=== PATIENT | female | born 1990 | race Caucasian/White ===

== ENCOUNTER 2021-08-02 16:07 | Emergency (ER) | payer OTHER, SELFPAY ==
[2021-08-02 16:57] VITALS: BP 147/86; PULSE 99; RESP 18; TEMP 36.7; O2SAT 99; BMI 48.1
--- NOTE | 2021-08-02 17:15 | ED.EAR ---
HPI - Ear Problem General Chief complaint: Ear Problems Stated complaint: Earache Time Seen by Provider: 08/02/21 17:15 Source: patient Mode of arrival: ambulatory Limitations: no limitations History of Present Illness MD Complaint: ear pain, ear discharge and decreased hearing Location: right ear Duration: constant Severity: moderate Relieving factors: nothing Exacerbating factors: chewing, position of head and palpation Discharge from ear: yes - purulent Associated symptoms ear: decreased hearing and external ear tenderness Treatment prior to arrival: none Related Data Previous Rx's Medication Instructions Recorded levofloxacin 750 mg tablet 750 mg PO DAILY #10 tab 08/02/21 ofloxacin 0.3 % ear drops 10 drp OTIC (EARS) DAILY 7 Days 08/02/21 #10 ml Allergies Allergy/AdvReac Type Severity Reaction Status Date / Time No Known Allergies Allergy Verified 08/02/21 16:56 [No Known Allergies*] Review of Systems Review of Systems: Constitutional : No Fever, No Chills ENT/Mouth : No sore throat, No Rhinorrhea, pos ear pain Eyes: No Eye Pain, No Swelling, No Redness Cardiovascular : No Chest Pain, No SOB Respiratory : No Cough, No Sputum, No Wheezing Gastrointestinal : No Nausea, No Vomiting, No Diarrhea Skin : No Skin Lesions, No rash Neuro : No Weakness, No Numbness, No Dizziness, No Headache PMFSH Past Medical History Attestation statement: The following information was validated with the patient. Medical History Patient denies medical problems Surgical History H/O eye surgery Social History Social History (Updated 08/02/21 @ 17:29 by Guadalupe Block DO) Patient Tobacco Use Status: Never used Tobacco Patient : No Physical Exam Vital Signs: Vital Signs: Last Vital Signs Temp 98.0 F 08/02/21 16:57 Pulse 99 08/02/21 16:57 Resp 18 08/02/21 16:57 BP 147/86 H 08/02/21 16:57 Pulse Ox 99 08/02/21 16:57 Body Mass Index 48.1 Appearance: Alert. Oriented X3. No acute distress. Eyes: Pupils equal, round and reactive to light. ENT: Pharynx normal. no mastoid ttp or swelling on R side has moderate swelling/yellow exudates in canal, R TM bulging and effusion, no obvious perforation Neck: Normal inspection. Neck supple. CVS: Normal heart rate and rhythm. Pulses normal. Respiratory: No respiratory distress. Breath sounds normal. Abdomen: Soft and nontender. Skin: Skin warm and dry. Normal skin color. Normal skin turgor. Extremities: No lower extremity edema. No calf ttp Neuro: Oriented X 3. No motor deficit. No sensory deficit. Course Course Course Narrative: manual placement of wick in R ear without issue, tolerated well MDM - Ear MDM Narrative Medical decision making narrative: 30 yo female no DM here with c/o R ear pain - has no mastoid ttp has external otitis that is tight as well as AOM in R ear will start on ofloxacin gtt place wick and PO levofloxacin - given strict precautions to return. Discharge Plan Discharge Clinical Impression: Otitis externa, Otitis media Patient Disposition: Home, Self-Care Instructions: Otitis Externa (ED), How to Use Ear Drops (ED), Ear Infection (ED) Additional Instructions: return to ED for any worsening symptoms or concerns SHOULD IMPROVE IN 24 HOURS EAR PIECE COMES OUT IN 3 DAYS OKAY TO PULL OUT, DO NOT GET WATER IN THE EAR Prescriptions: New ofloxacin 0.3 % drops 10 drp otic (ears) DAILY 7 Days Qty: 10 RF: 0 levofloxacin 750 mg tablet 750 mg PO DAILY Qty: 10 RF: 0 Print Language: Tamazight
== END 2021-08-02 17:31 | disposition home or self-care (01) ==
LOC: HO.ED 17:33
PROVIDERS: Emergency Provider Emergency Medicine
DX: H60.91 Unspecified otitis externa, right ear (principal); H92.01 Otalgia, right ear; H66.91 Otitis media, unspecified, right ear; Z79.899 Other long term (current) drug therapy
CPT/HCPCS: 99283

== ENCOUNTER 2021-10-16 11:19 | Outpatient (REF) | payer OTHER, SELFPAY ==
[2021-10-16 13:32] LABS: COVID-19 Test Negative (Negative)
== END 2021-10-16 11:20 | disposition home or self-care (01) ==
LOC: HO.LAB 11:19
PROVIDERS: Visit Provider Internal Medicine
DX: Z20.822 Contact with and (suspected) exposure to COVID-19 (principal)
CPT/HCPCS: 36415; 87635; C9803